=== PATIENT | male | born 1960 | race Caucasian/White ===

== ENCOUNTER → 2018-03-22 | Outpatient (CLI) | payer BC ==
[~2018-03-22] MED LIST: ASPIRIN BUFFER325 MG PO; GLUCOPHAGE500 MG PO; GLUCOTROL10 MG PO; ZOCOR5 MG PO
== END | disposition home or self-care (01) ==
LOC: CDC 08:22
DX: Z01.810 Encounter for preprocedural cardiovascular examination (principal); I70.25 Atherosclerosis of native arteries of other extremities with ulceration
CPT/HCPCS: 93000

== ENCOUNTER 2018-06-06 12:05 | Emergency (ER) | payer BC ==
[~2018-06-06] VITALS: Ht 172.7 cm; Wt 84.0 kg
[2018-06-06 13:54] LABS: HEMATOCRIT 39.4 % (38.0-50.0); MCH 34.2 PG (29.0-34.0); MCHC 35.5 G/DL (30.0-36.0); MCV 96.3 FL (86-99); PLATELET COUNT 246 K/uL (156-360); RBC DIS.WIDTH-CV 11.7 % (11.8-14.6); RBC DIS.WIDTH-SD 41.2 % (39-53); RED BLOOD COUNT 4.09 M/uL (4.00-5.50); WHITE BLOOD COUNT 17.4 K/uL (4.1-10.2)
[2018-06-06 14:02] LABS: CHLORIDE 104 mEq/L (99-109); POTASSIUM 4.4 mEq/L (3.7-5.4); SODIUM 138 mEq/L (136-147)
[2018-06-06 14:04] LABS: GLUCOSE 188 mg/dL (70-99)
[2018-06-06 14:08] LABS: CREATININE 1.4 mg/dL (0.6-1.3); GFR ESTIMATE (CALCULATED) 55 mL/min/ (58.99-99999)
[2018-06-06 14:09] LABS: UREA NITROGEN (BUN) 25 mg/dL (9-23)
[2018-06-06 14:37] LABS: CREATINE KINASE 91 IU/L (1-294)
[2018-06-06] MEDS ORDERED: KEFLEX500 MG PO (15:43)
[2018-06-06] MEDS ORDERED: ULTRAM50 MG PO (15:43)
[2018-06-06 16:21] VITALS: BP 115/78
== END 2018-06-06 16:50 | disposition home or self-care (01) ==
LOC: EME 12:05
PROVIDERS: Physician Assistant
DX: L03.115 Cellulitis of right lower limb (principal); M79.671 Pain in right foot; Z98.890 Other specified postprocedural states; E11.9 Type 2 diabetes mellitus without complications; Z79.84 Long term (current) use of oral hypoglycemic drugs; E78.5 Hyperlipidemia, unspecified; Z79.82 Long term (current) use of aspirin; Z87.891 Personal history of nicotine dependence
CPT/HCPCS: 80048; 82550; 85027; 93926; 93971; 99281; 99284